=== PATIENT | male | born 1980 | race Caucasian/White ===

== ENCOUNTER → 2016-09-24 | Outpatient (CLI) | payer OTHER ==
--- NOTE | 2016-09-26 10:07 | SLEEPCENT ---
DATE OF STUDY: 09/24/2016 ORDERING PROVIDER: Penny Palmer NP Nocturnal polysomnography was performed for evaluation of sleep apnea syndrome symptoms in this patient with complaints of excessive somnolence and nonrestorative sleep. 6 hours and 54 minutes of data were reviewed. There were 333 minutes of sleep identified. Sleep latency was mildly prolonged at 15 minutes. Rapid eye movement (REM) sleep was short at 60 minutes. Sleep architecture showed fair progression, but significant fragmentation was seen. There were four REM periods appreciated. Overall sleep efficiency was 81%. There was a reduction in REM time and no N3 sleep seen. Electrocardiogram (EKG) showed a sinus rhythm at baseline. Shortly into the test, an irregularly irregular rhythm was demonstrated. There was some artifact in the recording that atrial fibrillation is suspected. Later in the study, sinus rhythm was resumed. Electroencephalogram (EEG) showed normal waveforms for awake and sleep. No focal events were identified. There were 105 respiratory events identified of 10 seconds in duration or greater for an apnea-hypopnea index of 18.9. The events were primarily obstructive, not exclusive to sleep stage, more frequent but not exclusive to supine posture. Arousals from respiratory events occurred 7.2 times per hour. Oxygen desaturations were seen into the upper 80s. Some limb activity was noted, but arousals from limb events occurred only 4.1 times per hour. IMPRESSION #1: Obstructive sleep apnea syndrome (G47.33). Apnea-hypopnea index 18.9. IMPRESSION #2: Irregular cardiac rhythm (possible intermittent atrial fibrillation). RECOMMENDATION: The patient should be encouraged to return to the sleep disorder center for pressure therapy. In the interim, alcohol and sedative avoidance should be practiced and caution exercised during the operation of motor vehicles. Further investigation into the cardiac rhythm identified is also recommended.
== END ==
LOC: M SLEEP 17:45
PROVIDERS: ATTEND Nurse Practitioner Adult Health
DX: G47.30 Sleep apnea, unspecified (principal)

== ENCOUNTER → 2016-12-01 | Outpatient (CLI) | payer OTHER | LOC: M SLEEP 19:37 | PROVIDERS: ATTEND Nurse Practitioner Adult Health | DX: G47.33 Obstructive sleep apnea (adult) (pediatric) (principal) ==

== ENCOUNTER → 2019-03-02 | Outpatient (CLI) | payer OTHER ==
--- NOTE | 2019-03-03 16:18 | SLEEPCENT ---
DATE OF PROCEDURE: 03/02/2019 ORDERED BY: ATA Welsh Nocturnal polysomnography was performed for titration of pressure therapy in this patient with obstructive sleep apnea syndrome. For testing a ResMed nasal pillows mask of large size was used; 4 cm of water pressure applied to the circuit and the lights were extinguished. 7 hours and 20 minutes of data were reviewed. There were 402 minutes of sleep identified. Sleep latency was normal at 13 minutes. Rapid eye movement (REM) latency was normal at 68 minutes. Sleep architecture was good with a 4 REM cycles. Overall sleep efficiency 92.6%. The patient's electrocardiogram showed atrial fibrillation with a controlled ventricular response rate of 60 beats per minute. Electroencephalogram (EEG) showed normal waveforms for awake and sleep stages. Respiratory events were fully palliated with CPAP at a pressure of +6, and remaining measures of sleep physiology were normal. IMPRESSION: Obstructive sleep apnea syndrome (G47.33). RECOMMENDATIONS: Nightly use of pressure therapy 6 cm of water.
== END ==
LOC: M SLEEP 20:00
PROVIDERS: ATTEND Nurse Practitioner Family
DX: G47.33 Obstructive sleep apnea (adult) (pediatric) (principal)

== ENCOUNTER → 2019-04-12 | Outpatient (REF) | payer OTHER | LOC: M LAB REF 10:51 | PROVIDERS: ATTEND Physician Assistant | DX: N39.0 Urinary tract infection, site not specified (principal) ==

== ENCOUNTER → 2021-08-17 | Outpatient (REF) | payer OTHER | LOC: M SMT 13:04 | PROVIDERS: ATTEND Urology | DX: Z30.2 Encounter for sterilization (principal) ==

== ENCOUNTER → 2021-11-04 | Outpatient (REF) | payer OTHER ==
[2021-11-04 08:34] LABS: SEMEN APPEARANCE OPAQUE (OPAQUE); SEMEN VISCOSITY LIQUID (LIQUID); WBC CONCENTRATION >1 M/ml (<=1 M/ml)
== END ==
LOC: M SMT 08:16
PROVIDERS: ATTEND Urology
DX: Z30.2 Encounter for sterilization (principal)

== ENCOUNTER → 2024-06-30 | Outpatient (CLI) | payer BC | LOC: M SLEEP 20:00 | PROVIDERS: ATTEND Physician Assistant | DX: G47.33 Obstructive sleep apnea (adult) (pediatric) (principal) ==

== ENCOUNTER → 2024-10-16 | Outpatient (CLI) | payer BC ==
[2024-10-16 10:51] LABS: ALBUMIN 3.8 G/DL (3.2-5.2); ALKALINE PHOSPHATASE 80 U/L (40-129); ALT/SGPT 40 U/L (7.0-40); AST/SGOT 24 U/L (<34); BILIRUBIN,TOTAL 0.7 MG/DL (0.3-1.2); BLOOD UREA NITROGEN 17 MG/DL (9-23); CARBON DIOXIDE LEVEL 30 MMOL/L (20-31); CHLORIDE LEVEL 106 MMOL/L (98-107); CHOLESTEROL LEVEL 191 MG/DL (<200); CHOLESTEROL RISK RATIO 4.41 (<5); CREATININE FOR GFR 0.99 MG/DL (0.70-1.30); GLOMERULAR FILTRATION RATE > 60.0 (>60); GLUCOSE, FASTING 91 MG/DL (60-100); HDL CHOLESTEROL 43.3 MG/DL (>40); LDL CHOLESTEROL 124.5 MG/DL (<100); MAGNESIUM LEVEL 2.3 MG/DL (1.8-2.4); NON-HDL-C 147.7 MG/DL; POTASSIUM SERUM 4.9 MMOL/L (3.5-5.1); SODIUM LEVEL 142 MMOL/L (136-145); TRIGLYCERIDES LEVEL 116 MG/DL (<150)
[2024-10-16 10:52] LABS: HEMATOCRIT 48.5 % (42.0-52.0); HEMOGLOBIN 16.1 g/dl (13.5-17.5); MEAN CORPUSCULAR HEMOGLOBIN 32.9 pg (27.0-33.0); MEAN CORPUSCULAR HGB CONC 33.2 g/dl (32.0-36.5); PLATELET COUNT, AUTOMATED 264 10^3/uL (150-450); WHITE BLOOD COUNT 8.9 10^3/uL (4.0-10.0)
== END ==
LOC: M PLALAB 07:29
PROVIDERS: ATTEND Physician Assistant
DX: I48.21 Permanent atrial fibrillation (principal)

== ENCOUNTER → 2024-12-24 | Outpatient (CLI) | payer BC | LOC: M PLAIMG 07:36 | PROVIDERS: ATTEND Physician Assistant | DX: I77.810 Thoracic aortic ectasia (principal) ==

== ENCOUNTER → 2025-04-27 | Outpatient (CLI) | payer BC ==
[~2025-04-27] MED LIST: ASPI81TA26 PO
== END ==
LOC: M EKG 08:31
PROVIDERS: ATTEND Physician Assistant
DX: I48.21 Permanent atrial fibrillation (principal)

== ENCOUNTER 2025-05-15 08:32 | Day surgery (SDC) | payer BC ==
[~2025-05-15] VITALS: Ht 182.9 cm; Wt 147.4 kg
[~2025-05-15 08:32] MED LIST changes: +LIDOCAINE 2% 100 MG/5 ML SDV (FOR ANES.) As Ordered ONE
[2025-05-15 10:33] VITALS: TEMP 97.8
[2025-05-15 10:50] VITALS: BP 129/67; O2SAT 96
== END 2025-05-15 10:54 | disposition home or self-care (01) ==
LOC: M OPP 08:32
PROVIDERS: ATTEND Surgery
DX: Z12.11 Encounter for screening for malignant neoplasm of colon (principal); K63.5 Polyp of colon; G47.30 Sleep apnea, unspecified; Z88.2 Allergy status to sulfonamides; Z79.82 Long term (current) use of aspirin; I48.91 Unspecified atrial fibrillation; Z87.891 Personal history of nicotine dependence

== ENCOUNTER → 2025-07-03 | Outpatient (CLI) | payer BC ==
[~2025-07-03] MED LIST changes: -LIDOCAINE 2% 100 MG/5 ML SDV (FOR ANES.) As Ordered ONE
== END ==
LOC: M EKG 15:58
PROVIDERS: ATTEND Physician Assistant
DX: I48.21 Permanent atrial fibrillation (principal)